=== PATIENT | male | born 1985 | race Hispanic/Latino ===

== ENCOUNTER 2022-09-15 09:53 | Emergency (ER) | payer OTHER ==
[2022-09-15] MEDS ORDERED: Proparacaine 0.5% Opth 15 ML BOT ONE (10:15)
[2022-09-15] MEDS ORDERED: Fluorescein Opthalmic Strip ONE (10:15)
[2022-09-15] MEDS ORDERED: Acetaminophen 500 MG TAB ONE (10:53)
== END 2022-09-15 10:48 ==
LOC: ERS 09:53
DX: S05.01XA Injury of conjunctiva and corneal abrasion without foreign body, right eye, initial encounter (principal); W22.8XXA Striking against or struck by other objects, initial encounter
CPT/HCPCS: 99283

== ENCOUNTER 2023-05-09 18:08 | Emergency (ER) | payer OTHER | END 2023-05-09 19:05 | LOC: ERS 18:08 | DX: J39.2 Other diseases of pharynx (principal) | CPT/HCPCS: 71045; 74018 ==